=== PATIENT | male | born 1985 | race Caucasian/White ===

== ENCOUNTER 2019-09-30 15:47 | Emergency (ER) | payer BC ==
[~2019-09-30] VITALS: Ht 193 cm; Wt 111.1 kg
[2019-09-30 15:55] VITALS: BP 124/74
--- NOTE | 2019-09-30 16:00 | NUR ---
PT SEEN AND EXAMINED BY .
[2019-09-30] MEDS ORDERED: TDAP [DIPH/PERTUSSIS/TET] 0.5 ML VIAL IM ONE ×2 (16:03→16:30)
--- NOTE | 2019-09-30 16:06 | NUR ---
Patient discharged to home in stable condition. Written and verbal after care instructions given. Patient verbalizes understanding of instruction.
== END 2019-09-30 16:07 | disposition home or self-care (01) ==
LOC: ER 15:58
DX: S81.831A Puncture wound without foreign body, right lower leg, initial encounter (principal); W54.0XXA Bitten by dog, initial encounter; Y93.89 Activity, other specified; Y92.89 Other specified places as the place of occurrence of the external cause; Y99.8 Other external cause status
CPT/HCPCS: 90715